=== PATIENT | female | born 2000 | race Caucasian/White ===

== ENCOUNTER 2022-01-22 15:03 | Outpatient (CLI) | payer OTHER, SELFPAY ==
[2022-01-22 22:34] LABS: SARS PCR* POSITIVE SARS-CoV-2 (Negative)
== END 2022-01-22 15:04 | disposition home or self-care (01) ==
LOC: KYNREF 15:03
PROVIDERS: PCP Nurse Practitioner Family; Visit Provider Nurse Practitioner Family
DX: U07.1 COVID-19 (principal); J02.9 Acute pharyngitis, unspecified
CPT/HCPCS: 87635

== ENCOUNTER 2022-03-01 09:38 | Outpatient (CLI) | payer OTHER, SELFPAY ==
[2022-03-05 17:52] LABS: Antithrombin, Enzymatic 104 % (76-128)
[2022-03-05 17:55] LABS: Protein C Functional 143 % (83-168); Protein S Functional 91 % (57-131)
[2022-03-08 12:38] LABS: FACV Specimen Whole Blood; Factor V Leiden (F5) Mutation Negative
== END 2022-03-01 09:39 | disposition home or self-care (01) ==
PROVIDERS: PCP Nurse Practitioner Family; Visit Provider Nurse Practitioner Family
DX: Z01.818 Encounter for other preprocedural examination (principal); Z83.2 Family history of diseases of the blood and blood-forming organs and certain disorders involving the immune mechanism
CPT/HCPCS: 36415; 81241; 85300; 85303; 85306

== ENCOUNTER 2022-08-15 11:19 | Outpatient (CLI) | payer OTHER, SELFPAY ==
[2022-08-16 07:47] LABS: Strep A DNA Probe* NOT DETECTED (Not Detectd)
== END 2022-08-15 11:20 | disposition home or self-care (01) ==
LOC: KYNREF 11:19
PROVIDERS: PCP Nurse Practitioner Family; Visit Provider Nurse Practitioner Family
DX: J02.9 Acute pharyngitis, unspecified (principal)
CPT/HCPCS: 87651

== ENCOUNTER 2024-07-30 11:44 | Outpatient (CLI) | payer OTHER, SELFPAY ==
[2024-07-30 15:32] LABS: Strep A DNA Probe* NOT DETECTED (Not Detectd)
== END 2024-07-30 11:45 | disposition home or self-care (01) ==
LOC: KYNREF 11:44
PROVIDERS: PCP Nurse Practitioner Family; Visit Provider Nurse Practitioner Family
DX: J02.9 Acute pharyngitis, unspecified (principal)
CPT/HCPCS: 87651

== ENCOUNTER 2025-04-11 10:03 | Outpatient (CLI) | payer BC, SELFPAY | END 2025-04-11 10:04 | disposition home or self-care (01) | PROVIDERS: PCP Nurse Practitioner Family; Visit Provider Nurse Practitioner Family | DX: R53.83 Other fatigue (principal) | CPT/HCPCS: 82728; 83540; 83550; 84443; 85025 ==

== ENCOUNTER 2025-04-12 10:31 | Outpatient (CLI) | payer BC, SELFPAY ==
--- NOTE | 2025-04-12 10:45 | CRLHL7_ITS ---
For Patients: As a result of the Century Cures Act, medical imaging exams and procedure reports are released immediately into your electronic medical record. You may view this report before your referring provider. If you have questions, please contact your health care provider. INDICATION: Heavy / Frequent Menstruation with Irregular Cycles COMPARISON: None. TECHNIQUE: 2D archer-scale and color Doppler images were acquired of the pelvis using a transabdominal and transvaginal approach. Transvaginal imaging performed to better visualize the endometrial stripe and ovaries. FINDINGS: Sonographic images demonstrate a normal size and smooth outer contour of the uterus. Uterus measures 7.1 cm in length by 3.1 cm in AP diameter by 3.7 cm in transverse dimension. The myometrium has a normal uniform echotexture. The endometrial lining appears normal and measures 4.8 mm in composite thickness. The right ovary measures 3.6 x 1.6 x 2.1 cm in size and the left ovary measures 4.4 x 1.8 x 2.7 cm. The ovaries demonstrate normal arterial and venous blood flow on color Doppler analysis. There are no suspicious fluid collections within the cul-de-sac. Multiple small ovarian follicles are present bilaterally. IMPRESSION: Endometrial thickness 4.8 millimeters. Multiple small ovarian follicles. Dictated by Dale Floyd MD @ 04/12/2025 2:09:28 PM (Electronically Signed)
== END 2025-04-12 10:32 | disposition home or self-care (01) ==
LOC: US 10:32
PROVIDERS: PCP Nurse Practitioner Family; Visit Provider Nurse Practitioner Family
DX: N92.0 Excessive and frequent menstruation with regular cycle (principal); R93.89 Abnormal findings on diagnostic imaging of other specified body structures
CPT/HCPCS: 76856